=== PATIENT | female | born 2000 ===

== ENCOUNTER 2025-10-08 20:04 | Emergency (ER) | payer SELFPAY ==
--- NOTE | ~2025-10-08 | XR_ITS ---
EXAMINATION: XR chest 2V DATE: 10/08/2025 20:22 INDICATION: Palpitation TECHNIQUE: Frontal and lateral views of the chest were obtained. COMPARISON: None. FINDINGS: Heart size is normal. Lungs are clear of acute processes. IMPRESSION: 1. No acute pulmonary findings. Reviewed, dictated and finalized at location [facility]
--- NOTE | 2025-10-08 20:12 | ECG_ITS ---
Test Date: 2025-10-08 21:00:03 Measurements Intervals Helen Rate: 82 P: 45 CO: 154 QRS: 51 QRSD: 79 T: 33 QT: 342 QTc: 400 Interpretive Statements SINUS RHYTHM NORMAL ELECTROCARDIOGRAM No previous ECG available for comparison Electronically Signed On 10-09-2025 07:55:31 PRESSED [employer] by Chase Escobar M.D.
[2025-10-08 20:56] VITALS: BP 129/66; PULSE 81; TEMP 36.8; O2SAT 100
[2025-10-08 21:19] LABS: Hematocrit 36.4 % (37.0-47.0); Hemoglobin 12.0 g/dL (12.0-15.0); Immature Granulocyte Percent A 0.2 % (0-0.5); Immature Platelet Fraction Pct 6.7 % (0.9-11.2); Lymphocytes Absolute Auto 3.24 K/mm3 (0.9-3.2); Mean Corpuscular HGB Conc 33.0 g/dl (32-36); Mean Corpuscular Hemoglobin 22.1 pg (26-34); Mean Corpuscular Volume 67.2 fl (80-100); Nucleated Red Blood Cells Absolute Auto 0.000 K/mm3 (0.0-0.012); Nucleated Red Blood Cells Perc 0.0 % (0.0-0.2); Platelet Count Result 285 k/mm3 (150-375); Red Blood Count 5.42 M/mm3 (4.2-5.4); White Blood Count 10.1 K/mm3 (4.5-10.0)
[2025-10-08 21:28] LABS: Alanine Aminotransferase 21 U/L (6-35); Albumin Level 4.5 g/dL (3.5-5.1); Alkaline Phosphatase 61 U/L (38-126); Anion Gap 9 mmol/L (4-12); Aspartate Amino Transferase 28 U/L (14-36); Bilirubin,Total 0.4 mg/dL (0.2-1.3); Blood Urea Nitrogen 10 mg/dL (7-17); Calcium 9.5 mg/dL (8.4-10.2); Carbon Dioxide 24 mmol/L (22-30); Chloride 105 mmol/L (98-107); Estimated Glomerular Filt Rate > 60; Glucose 113 mg/dL (65-110); Lipase 102 U/L (23-300); Potassium 4.1 mmol/L (3.4-5.0); Sodium 138 mmol/L (137-145); Total Protein 8.2 g/dL (6.3-8.2)
--- NOTE | 2025-10-08 21:28 | PC.NURSE ---
Pt stated that she is having too much anxiety while waiting in waiting room with all the other patients. States she is going to go home. Axox4 with steady gait. appears in nad at this time.
[2025-10-08 21:29] LABS: INR 1.0; Partial Thromboplastin Time 28.9 Seconds (22.3-36.8); Prothrombin Time 13.4 Seconds (11.1-14.7)
[2025-10-08 21:30] LABS: Anisocytosis 1+; Microcytosis Occasional (NORMAL)
[2025-10-08 21:31] LABS: Ovalocytes 1+; Schistocytes None Seen
[2025-10-08 21:39] LABS: Troponin I < 0.012 ng/mL (0.000-0.034)
== END 2025-10-08 21:28 | disposition left against medical advice (07) ==
PROVIDERS: Emergency Provider Student in an Organized Health Care Education/Training Program
DX: Z53.21 Procedure and treatment not carried out due to patient leaving prior to being seen by health care provider (principal)
CPT/HCPCS: 36415; 71046; 80053; 83690; 84484; 85025; 85055; 85610; 85730; 93005; 99199